=== PATIENT | female | born 1970 | race Hispanic/Latino ===

== ENCOUNTER 2018-07-10 13:44 | Emergency (ER) | payer BC, OTHER ==
[~2018-07-10] VITALS: Ht 175.3 cm; Wt 83.9 kg
--- NOTE | 2018-07-10 14:47 | Diagnostic Imaging Report ---
EXAMINATION: Head CT HISTORY: Intermittent dizziness for the last week. COMPARISON: None. TECHNIQUE: Multidetector axial images were obtained without contrast from the foramen magnum to the vertex . The images were reconstructed using brain and bone algorithms. Thin section brain images were reformatted into coronal and sagittal planes. Image quality: Motion/streaking artifact limits the evaluation of the skull base and posterior cranial fossa. Dose modulation, iterative reconstruction, and/or weight based adjustment of the mA/kV was utilized to reduce the radiation dose to as low as reasonably achievable. FINDINGS: Parenchyma: 1. No abnormal densities. 2. No mass or hemorrhage. No CT evidence of acute territorial vascular insult. Extra-axial spaces:No abnormal density. No extra-axial fluid collections Brain volume: Normal for age. Ventricles: No hydrocephalus or displacement. Arteries: No density suggestive of thrombus. Dural sinuses: No abnormal density. Extra-axial spaces: No abnormal density. Foramen magnum: No mass, Chiari malformation, or basilar invagination. Sella: No obvious mass. Paranasal/mastoid sinuses: Imaged portions unremarkable. Skull/Scalp: No lytic or blastic lesions. No fractures. IMPRESSION: Normal head CT. Signed by: Dr. Tiffanie Luke M.D. on 07/10/2018 2:44 PM
[2018-07-11] MEDS ORDERED: MECLIZINE HCL 12.5 MG TAB PO ONE (09:00)
== END 2018-07-10 15:00 | disposition home or self-care (01) ==
LOC: FSED 13:44
DX: R42 Dizziness and giddiness (principal); H81.11 Benign paroxysmal vertigo, right ear
CPT/HCPCS: 70450; 80053; 81003; 82553; 84484; 85025; 93005; 99284